=== PATIENT | male | born 1965 | race Two or more races ===

== ENCOUNTER 2022-04-01 08:12 | Emergency (ER) | payer MEDICAID ==
[~2022-04-01] VITALS: Ht 170.2 cm; Wt 77.2 kg
[2022-04-01 09:02] VITALS: BP 113/77
[2022-04-01] MEDS ORDERED: PRED20TA2 PO (09:22)
[2022-04-01] MEDS ORDERED: BENZ100C19 PO (09:22)
== END 2022-04-01 09:39 | disposition home or self-care (01) ==
LOC: ER 08:12
DX: J20.9 Acute bronchitis, unspecified (principal); R07.89 Other chest pain
CPT/HCPCS: 71046